=== PATIENT | female | born 1935 | race Caucasian/White ===

== ENCOUNTER 2020-05-17 19:33 | Inpatient (IN) | payer MEDICARE, BC ==
[~2020-05-17] VITALS: Ht 154.9 cm; Wt 37.3 kg
[~2020-05-17 19:33] MED LIST: ASPIRIN 325MG325 MG PO; ASPIRIN EC81 MG PO; CLOPIDOGREL75 MG PO; ENOXAPARIN40 MG/0.4 SC; HYDROCHLOROTHIA25 MG PO; LANSOPRAZOLE30 MG PO
[2020-05-17 21:56] LABS: HEMOGLOBIN 10.9 gm/dl (12.3-15.3); RED BLOOD COUNT 3.58 M/UL (4.00-5.10); WHITE BLOOD COUNT 11.5 K/UL (4.5-11.0)
[2020-05-17 22:13] LABS: BUN/CREATININE RATIO 27 (0-10)
[2020-05-18 06:35] LABS: HEMOGLOBIN 11.2 gm/dl (12.3-15.3); RED BLOOD COUNT 3.72 M/UL (4.00-5.10); WHITE BLOOD COUNT 11.5 K/UL (4.5-11.0)
[2020-05-18 06:54] LABS: BUN/CREATININE RATIO 25 (0-10)
[2020-05-18] MEDS ORDERED: [UNRECOGNIZED DRUG - REMARK] PO (12:14)
[2020-05-18] MEDS ORDERED: BYSTOLIC5 MG PO (12:25)
[2020-05-18] MEDS ORDERED: FLONASE 0.05% N16 GM (15:32)
[2020-05-18] MEDS ORDERED: QUINAPRIL HCL5 MG PO (15:33)
[2020-05-19 03:38] LABS: HEMOGLOBIN 10.7 gm/dl (12.3-15.3); RED BLOOD COUNT 3.57 M/UL (4.00-5.10); WHITE BLOOD COUNT 10.3 K/UL (4.5-11.0)
[2020-05-19 03:57] LABS: BUN/CREATININE RATIO 19 (0-10)
[2020-05-19] MEDS ORDERED: CEFDINIR250 MG/5 M PO (09:59)
--- NOTE | 2020-05-19 10:49 | NUR ---
ORDER TO DISCHARGE PATIENT NOTED BY RN. PATIENT'S DAUGHTER STATED SHE WAS UNABLE TO TAKE PATIENT HOME UNTIL AFTER 4 PM TODAY. 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
--- NOTE | 2020-05-19 12:11 | NUR ---
NURSE REQUEST TO TEACH PATIENT AND DAUGHTER AT 4:00PM BASIL NAYLOR R.N.
--- NOTE | 2020-05-19 16:43 | NUR ---
REPORT CALLED TO [facility] NURSE ERROL. TRANSPORT CALLED TO ASSIST PATIENT AND FAMILY TO PRIVATE VEHICLE HOME. NO S/SX OF DISTRESS.
== END 2020-05-19 16:30 | disposition home health service (06) | DRG 689 ==
LOC: ER1 19:33 → MED SURG 4 05-18 00:16
PROVIDERS: Family Medicine; ADMIT Family Medicine
DX: N39.0 Urinary tract infection, site not specified (principal); G93.41 Metabolic encephalopathy; E44.1 Mild protein-calorie malnutrition; Z68.1 Body mass index [BMI] 19.9 or less, adult; I10 Essential (primary) hypertension; E86.0 Dehydration; Z20.822 Contact with and (suspected) exposure to COVID-19; K21.9 Gastro-esophageal reflux disease without esophagitis; I25.10 Atherosclerotic heart disease of native coronary artery without angina pectoris; Z90.710 Acquired absence of both cervix and uterus; Z95.5 Presence of coronary angioplasty implant and graft; Z79.82 Long term (current) use of aspirin; Z79.02 Long term (current) use of antithrombotics/antiplatelets; I69.322 Dysarthria following cerebral infarction; Z82.49 Family history of ischemic heart disease and other diseases of the circulatory system; Z79.899 Other long term (current) drug therapy; I25.2 Old myocardial infarction
CPT/HCPCS: 36415; 70450; 70498; 71045; 80048; 80053; 80307; 81001; 82550; 82553; 83874; 84484; 85025; 85027; 87086; 93005; 96365; 97165; 99285; J0696; J7030; J7040; Q9963; U0002

== ENCOUNTER 2020-05-26 04:43 | Inpatient (IN) | payer MEDICARE, BC ==
[~2020-05-26] VITALS: Ht 157.5 cm; Wt 46.3 kg
[~2020-05-26 04:43] MED LIST changes: +BYSTOLIC5 MG PO; +CEFDINIR250 MG/5 M PO; +FLONASE 0.05% N16 GM; +QUINAPRIL HCL5 MG PO; +[UNRECOGNIZED DRUG - REMARK] PO
[2020-05-26 05:18] LABS: HEMOGLOBIN 12.3 gm/dl (12.3-15.3); RED BLOOD COUNT 4.06 M/UL (4.00-5.10); WHITE BLOOD COUNT 25.6 K/UL (4.5-11.0)
[2020-05-27 03:48] LABS: RED BLOOD COUNT 3.73 M/UL (4.00-5.10)
[2020-05-28 04:42] LABS: HEMOGLOBIN 10.9 gm/dl (12.3-15.3); RED BLOOD COUNT 3.66 M/UL (4.00-5.10)
[2020-05-28] MEDS ORDERED: AUGMENTIN 500-500 MG PO (09:12)
[2020-05-28] MEDS ORDERED: K-DUR TAB 20 M20 MEQ PO (09:12)
== END 2020-05-28 18:40 | disposition home or self-care (01) | DRG 871 ==
LOC: ER1 04:43 → CDU 06:40 → PROG CARE 06:40
PROVIDERS: Emergency Medicine; ADMIT Internal Medicine
PROC: 5A09357 Assistance with Respiratory Ventilation, Less than 24 Consecutive Hours, Continuous Positive Airway Pressure (ICD-10-PCS; principal; 2020-05-26)
DX: A41.9 Sepsis, unspecified organism (principal); J96.01 Acute respiratory failure with hypoxia; J69.0 Pneumonitis due to inhalation of food and vomit; N17.9 Acute kidney failure, unspecified; E87.2 Acidosis; I50.20 Unspecified systolic (congestive) heart failure; E44.1 Mild protein-calorie malnutrition; Z68.1 Body mass index [BMI] 19.9 or less, adult; Z20.822 Contact with and (suspected) exposure to COVID-19; I25.10 Atherosclerotic heart disease of native coronary artery without angina pectoris; R65.20 Severe sepsis without septic shock; I11.0 Hypertensive heart disease with heart failure; Z86.73 Personal history of transient ischemic attack (TIA), and cerebral infarction without residual deficits; Z90.710 Acquired absence of both cervix and uterus; Z95.5 Presence of coronary angioplasty implant and graft
CPT/HCPCS: ECHO; 0240U; 36415; 36600; 71045; 74230; 80048; 80053; 80202; 82550; 82553; 82803; 83605; 83690; 83735; 83874; 83880; 84100; 84484; 85025; 85027; 85610; 85730; 87040; 92610; 92611-GN; 93005; 93306; 94660; 94664; 94760; 96365; 96366; 96368; 97161; 97166; 99285; J1650; J1940; J2543; J3370; J7030; J7070

== ENCOUNTER 2020-07-19 19:15 | Inpatient (IN) | payer MEDICARE, BC ==
[~2020-07-19] VITALS: Ht 157.5 cm; Wt 41.7 kg
[~2020-07-19 19:15] MED LIST changes: +AUGMENTIN 500-500 MG PO; +K-DUR TAB 20 M20 MEQ PO
[2020-07-19 19:47] LABS: RED BLOOD COUNT 3.74 M/UL (4.00-5.10); WHITE BLOOD COUNT 18.8 K/UL (4.5-11.0)
[2020-07-19 20:09] LABS: BUN/CREATININE RATIO 24 (0-10)
[2020-07-20 06:20] LABS: HEMOGLOBIN 10.2 gm/dl (12.3-15.3); RED BLOOD COUNT 3.52 M/UL (4.00-5.10); WHITE BLOOD COUNT 14.5 K/UL (4.5-11.0)
[2020-07-20 07:20] LABS: BUN/CREATININE RATIO 25 (0-10)
--- NOTE | 2020-07-21 02:08 | NUR ---
Telemetry notified me at this time. Patient experienced episode of A-fib with RVR (170's) then converted back to SR. Patient's 02 saturation 87% per RT. 02 via NC applied at this time, continuous pulse ox ordered for oxygen saturation to be monitored. Patient also has a weak cough at this time. TM
--- NOTE | 2020-07-21 02:21 | NUR ---
Attempted to contact MD at this time to inform of patient status change. Awaiting call back or will notify 3rd preference of MD. TABBY
--- NOTE | 2020-07-21 02:54 | NUR ---
Report called to PCU at this time. Patient transferred for higher level of care.
[2020-07-21 05:04] LABS: HEMOGLOBIN 9.9 gm/dl (12.3-15.3); RED BLOOD COUNT 3.43 M/UL (4.00-5.10); WHITE BLOOD COUNT 11.3 K/UL (4.5-11.0)
[2020-07-22 05:02] LABS: HEMOGLOBIN 9.9 gm/dl (12.3-15.3); RED BLOOD COUNT 3.45 M/UL (4.00-5.10); WHITE BLOOD COUNT 9.9 K/UL (4.5-11.0)
[2020-07-22 05:46] LABS: BUN/CREATININE RATIO 28 (0-10)
--- NOTE | 2020-07-22 07:01 | NUR ---
0430PATIENT HEART RATE GOING TO 170S AFIB. PHONED TO MAKE HIM AWARE. CARDIZEM RESTARTED AT 5ML/HR, NO BOLUS GIVEN. BLOOD PRESSURE IN 80s SBP AND HOLDING. HEART RATE IS RESPONDING.
[2020-07-23 02:28] LABS: RED BLOOD COUNT 3.45 M/UL (4.00-5.10); WHITE BLOOD COUNT 9.9 K/UL (4.5-11.0)
[2020-07-23 02:49] LABS: BUN/CREATININE RATIO 30 (0-10)
[2020-07-24 02:49] LABS: HEMOGLOBIN 10.2 gm/dl (12.3-15.3); RED BLOOD COUNT 3.68 M/UL (4.00-5.10); WHITE BLOOD COUNT 11.4 K/UL (4.5-11.0)
[2020-07-24 03:15] LABS: BUN/CREATININE RATIO 29 (0-10)
[2020-07-25 02:13] LABS: RED BLOOD COUNT 3.92 M/UL (4.00-5.10); WHITE BLOOD COUNT 12.6 K/UL (4.5-11.0)
--- NOTE | 2020-07-25 18:09 | NUR ---
DR SANTOS NOTIFIED OF PATIENT'S HR 140 AT TIMES, BP 80/54 AT LOWEST PATIENT IS SITTING IN BED, CALM AND ASYMPTOMATIC ORDERED 0.25 MG DIGOXIN IVP Q6H X4 DOSES WCTM....
[2020-07-26 02:15] LABS: HEMOGLOBIN 9.8 gm/dl (12.3-15.3); RED BLOOD COUNT 3.64 M/UL (4.00-5.10); WHITE BLOOD COUNT 10.4 K/UL (4.5-11.0)
[2020-07-28 03:11] LABS: WHITE BLOOD COUNT 10.4 K/UL (4.5-11.0)
[2020-07-28 03:21] LABS: HEMOGLOBIN 11.9 gm/dl (12.3-15.3); RED BLOOD COUNT 4.13 M/UL (4.00-5.10)
[2020-07-28 03:32] LABS: BUN/CREATININE RATIO 24 (0-10)
[2020-07-28] MEDS ORDERED: ELIQUIS 2.5 MG2.5 MG PO (10:30)
[2020-07-28] MEDS ORDERED: LOPRESSOR 25 MG25 MG PO (10:30)
[2020-07-28] MEDS ORDERED: IPRAT-ALBUT 0.5-3 ML INH (10:30)
[2020-07-28] MEDS ORDERED: AMIODARONE HCL200 MG PO (10:30)
[2020-07-28] MEDS ORDERED: NEBULIZER UNIT INH (10:30)
[2020-07-28] MEDS ORDERED: IPRAT-ALBUT 0.5-3 ML NEB (10:30)
== END 2020-07-28 14:03 | disposition home health service (06) | DRG 177 ==
LOC: ER1 19:15 → MED SURG 4 22:30 → PROG CARE 22:30 → CDU 22:30 → MED SURG 4 07-20 00:06 → PROG CARE 07-21 02:49
PROVIDERS: Internal Medicine; Physician Assistant; ADMIT Family Medicine
DX: J69.0 Pneumonitis due to inhalation of food and vomit (principal); I26.99 Other pulmonary embolism without acute cor pulmonale; I50.42 Chronic combined systolic (congestive) and diastolic (congestive) heart failure; G45.8 Other transient cerebral ischemic attacks and related syndromes; E46 Unspecified protein-calorie malnutrition; R13.10 Dysphagia, unspecified; J20.9 Acute bronchitis, unspecified; K22.2 Esophageal obstruction; R07.9 Chest pain, unspecified; I65.29 Occlusion and stenosis of unspecified carotid artery; I71.4 Abdominal aortic aneurysm, without rupture; Z20.822 Contact with and (suspected) exposure to COVID-19; I48.0 Paroxysmal atrial fibrillation; I25.10 Atherosclerotic heart disease of native coronary artery without angina pectoris; Z96.641 Presence of right artificial hip joint; I11.0 Hypertensive heart disease with heart failure; I25.5 Ischemic cardiomyopathy; I27.20 Pulmonary hypertension, unspecified; I34.0 Nonrheumatic mitral (valve) insufficiency; I69.991 Dysphagia following unspecified cerebrovascular disease; Z90.710 Acquired absence of both cervix and uterus; Z79.01 Long term (current) use of anticoagulants; Z82.49 Family history of ischemic heart disease and other diseases of the circulatory system; Z79.82 Long term (current) use of aspirin; Z79.899 Other long term (current) drug therapy; Z87.891 Personal history of nicotine dependence; I25.2 Old myocardial infarction
CPT/HCPCS: 0240U; 36415; 71045; 71046; 74230; 80048; 80053; 81001; 82550; 82553; 83605; 83735; 83874; 83880; 84439; 84443; 84484; 85025; 85027; 85379; 87040; 92526; 92610; 92611-GN; 93005; 93970; 94640; 94664; 94760; 96372; 96374; 97166; 97530; 99285; G0378; J0696; J1160; J1650; J7030; Q9967

== ENCOUNTER 2020-08-12 21:50 | Inpatient (IN) | payer MEDICARE, BC ==
[~2020-08-12] VITALS: Ht 152.4 cm; Wt 47.6 kg
[~2020-08-12 21:50] MED LIST changes: +AMIODARONE HCL200 MG PO; +ELIQUIS 2.5 MG2.5 MG PO; +IPRAT-ALBUT 0.5-3 ML INH; +IPRAT-ALBUT 0.5-3 ML NEB; +LOPRESSOR 25 MG25 MG PO; +NEBULIZER UNIT INH
[2020-08-12 22:35] LABS: HEMOGLOBIN 12.4 gm/dl (12.3-15.3); RED BLOOD COUNT 4.26 M/UL (4.00-5.10); WHITE BLOOD COUNT 15.2 K/UL (4.5-11.0)
[2020-08-13 05:53] LABS: HEMOGLOBIN 8.6 gm/dl (12.3-15.3); RED BLOOD COUNT 3.02 M/UL (4.00-5.10); WHITE BLOOD COUNT 8.9 K/UL (4.5-11.0)
[2020-08-14 03:29] LABS: HEMOGLOBIN 10.3 gm/dl (12.3-15.3)
[2020-08-14 03:31] LABS: RED BLOOD COUNT 3.65 M/UL (4.00-5.10)
--- NOTE | 2020-08-14 10:24 | NUR ---
family at bedside noted at this time,
--- NOTE | 2020-08-14 18:17 | NUR ---
1230 PT HAD INCREASED SOA AND SOUNDING VERY WET IN HER LUNGS SPITTING UP CLEAR SECREATIONS , MADE AWARE , IVF D/C , TUBE FEEDING HELD/ LASIX GIVEN CXRAY SHOWED INCREASED EDEMA , ATIVAN GIVEN , PULM AND CARDIO CONSULTED AND SEEN PT, F/C PLACED , IV ANTIBIOTICS CHANGED , BIPAP PUT ON , LATER PT STARTED FEELING MUCH BETTER , AFTER SOME FLD OFF, ON HFNC 6 LITERS SATS 94-99 NOW AND RESTING MORE COMFORTABLE , DR HERNANDEZ SAID TO LEAVE TUBE FEEDING OFF FOR THE NIGHT NOTED
[2020-08-15 04:00] LABS: HEMOGLOBIN 10.1 gm/dl (12.3-15.3); RED BLOOD COUNT 3.52 M/UL (4.00-5.10); WHITE BLOOD COUNT 6.8 K/UL (4.5-11.0)
[2020-08-16 04:57] LABS: RED BLOOD COUNT 3.53 M/UL (4.00-5.10); WHITE BLOOD COUNT 5.4 K/UL (4.5-11.0)
[2020-08-16 05:18] LABS: BUN/CREATININE RATIO 23 (0-10)
[2020-08-17 04:41] LABS: HEMOGLOBIN 10.4 gm/dl (12.3-15.3); RED BLOOD COUNT 3.65 M/UL (4.00-5.10); WHITE BLOOD COUNT 5.7 K/UL (4.5-11.0)
[2020-08-17 05:05] LABS: BUN/CREATININE RATIO 29 (0-10)
--- NOTE | 2020-08-17 12:54 | NUR ---
1200 NOON. PATIENT OUT OF BED TO CHAIR PER HOSPITAL STAFF. NADN. FAMILY AT BEDSIDE WILL CONTINUE TO MONITOR
[2020-08-18 05:18] LABS: HEMOGLOBIN 10.4 gm/dl (12.3-15.3); RED BLOOD COUNT 3.68 M/UL (4.00-5.10); WHITE BLOOD COUNT 6.4 K/UL (4.5-11.0)
[2020-08-18 05:20] LABS: BUN/CREATININE RATIO 29 (0-10)
[2020-08-19 04:29] LABS: HEMOGLOBIN 11.3 gm/dl (12.3-15.3); RED BLOOD COUNT 3.96 M/UL (4.00-5.10); WHITE BLOOD COUNT 5.9 K/UL (4.5-11.0)
[2020-08-19 04:46] LABS: BUN/CREATININE RATIO 24 (0-10)
[2020-08-20 02:52] LABS: HEMOGLOBIN 10.6 gm/dl (12.3-15.3); RED BLOOD COUNT 3.73 M/UL (4.00-5.10)
[2020-08-20 03:05] LABS: BUN/CREATININE RATIO 26 (0-10)
[2020-08-20] MEDS ORDERED: [UNRECOGNIZED DRUG - SUPPLY] GT (11:10)
[2020-08-20] MEDS ORDERED: JEVITY 1.5 CA1500 ML PO (11:10)
== END 2020-08-20 18:30 | disposition home health service (06) | DRG 177 ==
LOC: ER1 21:50 → CDU 08-13 00:35 → PROG CARE 08-13 00:35 → CCU 08-13 00:35 → PROG CARE 08-16 15:39
PROVIDERS: Internal Medicine; Surgery; ADMIT Family Medicine
PROC: 0DH63UZ Insertion of Feeding Device into Stomach, Percutaneous Approach (ICD-10-PCS; principal; 2020-08-18 07:30)
PROC: 0DJ08ZZ Inspection of Upper Intestinal Tract, Via Natural or Artificial Opening Endoscopic (ICD-10-PCS; principal; 2020-08-18 07:30)
DX: J69.0 Pneumonitis due to inhalation of food and vomit (principal); J96.01 Acute respiratory failure with hypoxia; E43 Unspecified severe protein-calorie malnutrition; I50.43 Acute on chronic combined systolic (congestive) and diastolic (congestive) heart failure; N17.9 Acute kidney failure, unspecified; J90 Pleural effusion, not elsewhere classified; Z68.1 Body mass index [BMI] 19.9 or less, adult; I69.354 Hemiplegia and hemiparesis following cerebral infarction affecting left non-dominant side; Z66 Do not resuscitate; Z20.822 Contact with and (suspected) exposure to COVID-19; I11.0 Hypertensive heart disease with heart failure; E86.0 Dehydration; I95.9 Hypotension, unspecified; R13.10 Dysphagia, unspecified; I73.9 Peripheral vascular disease, unspecified; I25.10 Atherosclerotic heart disease of native coronary artery without angina pectoris; K21.9 Gastro-esophageal reflux disease without esophagitis; E78.5 Hyperlipidemia, unspecified; I65.29 Occlusion and stenosis of unspecified carotid artery; K59.09 Other constipation; I48.0 Paroxysmal atrial fibrillation; I34.0 Nonrheumatic mitral (valve) insufficiency; I25.5 Ischemic cardiomyopathy; E87.6 Hypokalemia; M81.0 Age-related osteoporosis without current pathological fracture; Z96.641 Presence of right artificial hip joint; L89.151 Pressure ulcer of sacral region, stage 1; L89.621 Pressure ulcer of left heel, stage 1; L89.611 Pressure ulcer of right heel, stage 1; Z82.49 Family history of ischemic heart disease and other diseases of the circulatory system; Z90.710 Acquired absence of both cervix and uterus; I69.322 Dysarthria following cerebral infarction; I69.391 Dysphagia following cerebral infarction; Z95.5 Presence of coronary angioplasty implant and graft; Z79.82 Long term (current) use of aspirin; Z79.01 Long term (current) use of anticoagulants; I69.392 Facial weakness following cerebral infarction; Z87.891 Personal history of nicotine dependence; Z87.01 Personal history of pneumonia (recurrent)
CPT/HCPCS: 36415; 36600; 71045; 71046; 71250; 74018; 80048; 80053; 80202; 81001; 82550; 82553; 82803; 83605; 83735; 83880; 84484; 85025; 85027; 87040; 93005; 94640; 94660; 94760; 96365; 96375; 97116-GP-CQ; 97162; 99285; A6212; J1940; J2060; J2185; J2543; J2704; J3370; J3475; J7030; J7040; J7070; U0002

== ENCOUNTER 2020-08-29 01:52 | Inpatient (IN) | payer MEDICARE, BC ==
[~2020-08-29] VITALS: Ht 157.5 cm; Wt 47.6 kg
[~2020-08-29 01:52] MED LIST changes: +JEVITY 1.5 CA1500 ML PO; +[UNRECOGNIZED DRUG - SUPPLY] GT
[2020-08-29 02:30] LABS: HEMOGLOBIN 10.4 gm/dl (12.3-15.3); RED BLOOD COUNT 3.62 M/UL (4.00-5.10); WHITE BLOOD COUNT 15.6 K/UL (4.5-11.0)
[2020-08-29] MEDS ORDERED: BISA-LAX5 MG PO (12:10)
[2020-08-29] MEDS ORDERED: VALIUM 5 MG TAB5 MG PO (13:09)
[2020-08-29] MEDS ORDERED: REMERON 15 MG T15 MG PO (13:10)
[2020-08-29] MEDS ORDERED: LISINOPRIL30 MG PO (13:12)
[2020-08-29] MEDS ORDERED: ASPIRIN81 MG PO (13:12)
[2020-08-29] MEDS ORDERED: CLARITIN10 MG PO (13:13)
[2020-08-29] MEDS ORDERED: ZETIA10 MG PO (15:33)
[2020-08-31 03:49] LABS: HEMOGLOBIN 8.9 gm/dl (12.3-15.3)
[2020-08-31 04:00] LABS: RED BLOOD COUNT 3.16 M/UL (4.00-5.10); WHITE BLOOD COUNT 8.4 K/UL (4.5-11.0)
[2020-09-01 03:15] LABS: RED BLOOD COUNT 3.16 M/UL (4.00-5.10); WHITE BLOOD COUNT 8.2 K/UL (4.5-11.0)
[2020-09-02 02:30] LABS: HEMOGLOBIN 7.9 gm/dl (12.3-15.3); RED BLOOD COUNT 2.95 M/UL (4.00-5.10); WHITE BLOOD COUNT 7.8 K/UL (4.5-11.0)
[2020-09-02] MEDS ORDERED: FUROSEMIDE20 MG PO (11:17)
[2020-09-03 02:42] LABS: HEMOGLOBIN 8.8 gm/dl (12.3-15.3); RED BLOOD COUNT 3.15 M/UL (4.00-5.10); WHITE BLOOD COUNT 15.1 K/UL (4.5-11.0)
== END 2020-09-03 12:32 | disposition home health service (06) | DRG 291 ==
LOC: ER1 01:52 → PROG CARE 05:42 → CDU 05:42 → PROG CARE 16:33
PROVIDERS: Emergency Medicine; ADMIT Family Medicine
PROC: 5A09357 Assistance with Respiratory Ventilation, Less than 24 Consecutive Hours, Continuous Positive Airway Pressure (ICD-10-PCS; principal; 2020-08-29)
DX: I11.0 Hypertensive heart disease with heart failure (principal); E43 Unspecified severe protein-calorie malnutrition; J96.21 Acute and chronic respiratory failure with hypoxia; J96.22 Acute and chronic respiratory failure with hypercapnia; I48.19 Other persistent atrial fibrillation; I69.359 Hemiplegia and hemiparesis following cerebral infarction affecting unspecified side; I50.23 Acute on chronic systolic (congestive) heart failure; K59.00 Constipation, unspecified; Z20.822 Contact with and (suspected) exposure to COVID-19; Z66 Do not resuscitate; I65.29 Occlusion and stenosis of unspecified carotid artery; I25.10 Atherosclerotic heart disease of native coronary artery without angina pectoris; I25.5 Ischemic cardiomyopathy; L89.102 Pressure ulcer of unspecified part of back, stage 2; I48.0 Paroxysmal atrial fibrillation; D64.9 Anemia, unspecified; R13.10 Dysphagia, unspecified; R54 Age-related physical debility; E87.6 Hypokalemia; Z96.641 Presence of right artificial hip joint; E78.5 Hyperlipidemia, unspecified; Z87.891 Personal history of nicotine dependence; Z90.710 Acquired absence of both cervix and uterus; Z79.01 Long term (current) use of anticoagulants; Z86.711 Personal history of pulmonary embolism; I69.391 Dysphagia following cerebral infarction; Z82.49 Family history of ischemic heart disease and other diseases of the circulatory system; I69.322 Dysarthria following cerebral infarction; Z95.820 Peripheral vascular angioplasty status with implants and grafts
CPT/HCPCS: 36415; 36600; 71045; 80048; 80053; 80061; 81001; 82140; 82550; 82553; 82803; 83036; 83605; 83735; 83880; 84100; 84132; 84439; 84443; 84484; 84550; 85025; 85027; 87040; 87086; 93005; 94640; 94660; 94664; 94760; 96374; 97110-GP-CQ; 97116-GP-CQ; 97161; 97166; 97530; 99285; J1335; J1580; J1940; J3260; J3370; J7030; J7040; U0002

== ENCOUNTER 2020-09-13 12:46 | Inpatient (IN) | payer MEDICARE, BC ==
[~2020-09-13] VITALS: Ht 160 cm; Wt 43.3 kg
[~2020-09-13 12:46] MED LIST changes: +ASPIRIN81 MG PO; +BISA-LAX5 MG PO; +CLARITIN10 MG PO; +FUROSEMIDE20 MG PO; +LISINOPRIL30 MG PO; +REMERON 15 MG T15 MG PO; +VALIUM 5 MG TAB5 MG PO; +ZETIA10 MG PO
[2020-09-13 13:17] LABS: BORDETELLA PARAPERTUSSIS Not Detected (Not Detectd); BORDETELLA PERTUSSIS Not Detected (Not Detectd); CHLAMYDIA PNEUMONIAE Not Detected (Not Detectd); CORONAVIRUS HKU1 Not Detected (Not Detectd); CORONAVIRUS NL63 Not Detected (Not Detectd); CORONAVIRUS OC43 Not Detected (Not Detectd); CORONOAVIRUS 229E Not Detected (Not Detectd); HUMAN METAPNEUMOVIRUS Not Detected (Not Detectd); HUMAN RHINOVIRUS/ENTEROVIRUS Not Detected (Not Detectd); INFLUENZA A Not Detected (Not Detectd); INFLUENZA B Not Detected (Not Detectd); MYCOPLASMA PNEUMONIAE Not Detected (Not Detectd); PARAINFLUENZA VIRUS 1 Not Detected (Not Detectd); PARAINFLUENZA VIRUS 2 Not Detected (Not Detectd); PARAINFLUENZA VIRUS 3 Not Detected (Not Detectd); PARAINFLUENZA VIRUS 4 Not Detected (Not Detectd); RESPIRATORY SYNCYTIAL VIRUS Not Detected (Not Detectd)
[2020-09-13 14:10] LABS: HEMOGLOBIN 9.4 gm/dl (12.3-15.3); RED BLOOD COUNT 3.17 M/UL (4.00-5.10); WHITE BLOOD COUNT 10.2 K/UL (4.5-11.0)
[2020-09-13 14:12] LABS: SARS-CoV-2 NOT DETECTED (Not Detectd)
[2020-09-14 01:30] LABS: HEMOGLOBIN 8.2 gm/dl (12.3-15.3); WHITE BLOOD COUNT 11.5 K/UL (4.5-11.0)
[2020-09-14 01:32] LABS: RED BLOOD COUNT 2.8 M/UL (4.00-5.10)
[2020-09-15 02:58] LABS: HEMOGLOBIN 8.6 gm/dl (12.3-15.3); RED BLOOD COUNT 2.95 M/UL (4.00-5.10); WHITE BLOOD COUNT 10.6 K/UL (4.5-11.0)
[2020-09-15 16:14] LABS: HEMATOCRIT 25.6 % (34.0-46.6)
[2020-09-16 05:53] LABS: HEMOGLOBIN 8.8 gm/dl (12.3-15.3); RED BLOOD COUNT 3.02 M/UL (4.00-5.10); WHITE BLOOD COUNT 7.9 K/UL (4.5-11.0)
[2020-09-17 03:00] LABS: HEMOGLOBIN 8.1 gm/dl (12.3-15.3); RED BLOOD COUNT 2.75 M/UL (4.00-5.10)
[2020-09-17 03:01] LABS: WHITE BLOOD COUNT 10.4 K/UL (4.5-11.0)
[2020-09-18 02:38] LABS: HEMOGLOBIN 8.4 gm/dl (12.3-15.3); RED BLOOD COUNT 2.86 M/UL (4.00-5.10); WHITE BLOOD COUNT 12.6 K/UL (4.5-11.0)
[2020-09-20] MEDS ORDERED: FERROUS GLUCON324 M1 PO (11:38)
[2020-09-20] MEDS ORDERED: REMERON 15 MG T15 MG PO (11:38)
[2020-09-20] MEDS ORDERED: ZYVOX600 MG PO (11:38)
[2020-09-20] MEDS ORDERED: VALIUM 5 MG TAB5 MG PO (11:38)
== END 2020-09-20 17:56 | DRG 291 ==
LOC: ER1 12:46 → CDU 17:45 → PROG CARE 17:45
PROVIDERS: Emergency Medicine; ADMIT Family Medicine
DX: I11.0 Hypertensive heart disease with heart failure (principal); J96.21 Acute and chronic respiratory failure with hypoxia; J69.0 Pneumonitis due to inhalation of food and vomit; N30.00 Acute cystitis without hematuria; I50.23 Acute on chronic systolic (congestive) heart failure; Z20.822 Contact with and (suspected) exposure to COVID-19; I48.0 Paroxysmal atrial fibrillation; I69.991 Dysphagia following unspecified cerebrovascular disease; Z66 Do not resuscitate; R13.10 Dysphagia, unspecified; I27.20 Pulmonary hypertension, unspecified; I25.10 Atherosclerotic heart disease of native coronary artery without angina pectoris; I65.21 Occlusion and stenosis of right carotid artery; Z96.641 Presence of right artificial hip joint; F01.50 Vascular dementia, unspecified severity, without behavioral disturbance, psychotic disturbance, mood disturbance, and anxiety; D50.9 Iron deficiency anemia, unspecified; I73.9 Peripheral vascular disease, unspecified; K59.00 Constipation, unspecified; Z98.890 Other specified postprocedural states; Z86.711 Personal history of pulmonary embolism; Z79.01 Long term (current) use of anticoagulants; Z79.82 Long term (current) use of aspirin; Z90.710 Acquired absence of both cervix and uterus; Z79.02 Long term (current) use of antithrombotics/antiplatelets; Z87.891 Personal history of nicotine dependence; Z82.49 Family history of ischemic heart disease and other diseases of the circulatory system
CPT/HCPCS: 36415; 36600; 71045; 71046; 80048; 80053; 80202; 81001; 82550; 82553; 82607; 82728; 82747; 82803; 83540; 83550; 83605; 83735; 83874; 83880; 84100; 84484; 85025; 85027; 87040; 87070; 87077; 87086; 87186; 87205; 87633; 93005; 94640; 94660; 94664; 94760; 96374; 97110-GP-CQ; 97116; 97162; 97166; 97530; 97530-GP-CQ; 99285; A6212; J1940; J3370; J7030; J7070; U0002